=== PATIENT | female | born 2000 | race Caucasian/White ===

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

== ENCOUNTER 2023-05-02 23:34 | Emergency (ER) | payer OTHER ==
[2023-05-02 23:40] VITALS: BP 139/88; PULSE 92; RESP 18; TEMP 97.6; BMI 34.3
[2023-05-03] MEDS ORDERED: LIDOCAINE 5% TOPICAL PATCH TP ONE (01:09)
[2023-05-03] MEDS ORDERED: METHOCARBAMOL 500 MG TABLET PO ONE (01:10)
[2023-05-03] MEDS ORDERED: KETOROLAC TROMETHAMINE 30 MG/1 ML VIAL IM ONE (01:10)
[2023-05-03] MEDS ORDERED: ACETAMINOPHEN 500 MG TABLET (FP) PO ONE (01:18)
[2023-05-03] MEDS ORDERED: ACETAMINOPHEN 325 MG TABLET (FP) ONE (01:19)
[2023-05-03] MEDS ORDERED: LIDOCAINE 5% TOPICAL PATCH ONE (01:19)
[2023-05-03] MEDS ORDERED: METHOCARBAMOL 500 MG TABLET ONE (03:04)
[2023-05-03] MEDS ORDERED: KETOROLAC TROMETHAMINE 30 MG/1 ML VIAL ONE (03:04)
[2023-05-03] MEDS ORDERED: oxyCODONE HCL 5 MG TABLET PO ONE (04:25)
[2023-05-03] MEDS ORDERED: oxyCODONE HCL 5 MG TABLET ONE (04:41)
[2023-05-03] MEDS ORDERED: LIDOCAINE PATCH REMOVAL MC SCH (22:00)
== END 2023-05-03 04:45 | disposition home or self-care (01) ==
LOC: JER 23:34
PROC: 3E0233Z Introduction of Anti-inflammatory into Muscle, Percutaneous Approach (ICD-10-PCS; principal; 2023-05-03)
DX: M54.41 Lumbago with sciatica, right side (principal); G89.29 Other chronic pain
CPT/HCPCS: 36415; 72100-TC-FY; 84703; 99284-25

== ENCOUNTER 2024-03-16 00:46 | Emergency (ER) | payer SELFPAY ==
[2024-03-16 00:59] VITALS: BP 127/82; PULSE 71; RESP 16; TEMP 98.8; BMI 33.3
[2024-03-16] MEDS: IBUPROFEN 600 MG TABLET (FP) PO ONE (01:57)
[2024-03-16] MEDS ORDERED: IBUPROFEN 600 MG TABLET (FP) PO ONE (02:00)
== END 2024-03-16 02:06 | disposition home or self-care (01) ==
LOC: JER 00:46
DX: H92.01 Otalgia, right ear (principal)
CPT/HCPCS: 99283-25

== ENCOUNTER 2024-03-18 10:06 | Emergency (ER) | payer SELFPAY ==
[2024-03-18 10:13] VITALS: BP 117/67; PULSE 67; RESP 18; TEMP 98.2; BMI 42.9
== END 2024-03-18 10:49 | disposition home or self-care (01) ==
LOC: JERFT 10:06
DX: H66.91 Otitis media, unspecified, right ear (principal)
CPT/HCPCS: 99283-25